=== PATIENT | female | born 1965 | race African-American/Black ===

== ENCOUNTER 2020-07-22 11:31 | Emergency (ER) | payer OTHER ==
[~2020-07-22] VITALS: Ht 167.6 cm; Wt 122.5 kg
[2020-07-22 14:20] VITALS: BP 127/77
[2020-07-22] MEDS ORDERED: HYDROCODON-ACE1 EAC7 PO (14:36)
== END 2020-07-22 14:45 | disposition home or self-care (01) ==
LOC: ER 11:31
DX: M25.511 Pain in right shoulder (principal); M79.671 Pain in right foot; R22.43 Localized swelling, mass and lump, lower limb, bilateral; Z88.2 Allergy status to sulfonamides; Z88.8 Allergy status to other drugs, medicaments and biological substances; V49.88XA Car occupant (driver) (passenger) injured in other specified transport accidents, initial encounter; Y93.89 Activity, other specified; Y92.89 Other specified places as the place of occurrence of the external cause; Y99.9 Unspecified external cause status

== ENCOUNTER 2020-08-21 12:16 | Emergency (ER) | payer OTHER ==
[~2020-08-21] VITALS: Ht 167.6 cm; Wt 120.8 kg
[~2020-08-21 12:16] MED LIST: HYDROCODON-ACE1 EAC7 PO
[2020-08-21] MEDS ORDERED: NORCO5 PO (14:42)
[2020-08-21 14:50] VITALS: BP 132/81
== END 2020-08-21 15:02 | disposition home or self-care (01) ==
LOC: ER 12:16
DX: M79.661 Pain in right lower leg (principal); M79.671 Pain in right foot; Z88.2 Allergy status to sulfonamides; Z88.8 Allergy status to other drugs, medicaments and biological substances; Z99.2 Dependence on renal dialysis